=== PATIENT | male | born 1950 | race Caucasian/White ===

== ENCOUNTER → 2017-12-16 | Outpatient (CLI) | payer OTHER ==
[~2017-12-16] MED LIST: ACETAMINOPHEN325 M1 PO; ACETAMINOPHEN650 M5 PO; ADULT LOW DOSE81 MG PO; ANTACID500 MG PO; BENADRYL ALLERG25 MG PO; CLARITIN10 M2 PO; CLOBETASOL PROP50 M1 TOP; COLACE100 MG PO; COUMADIN 2.5MG2.5 M1 PO; COUMADIN 4 MG TA4 M1 PO; DEXILANT60 MG PO; DOVONEX TOP; FENOFIBRATE145 M1 PO; FOLIC ACID1 MG PO; GEMFIBROZIL 60600 MG PO; KEFLEX500 MG PO; METAMUCIL PAC1 UDPK1; METHOTREXA1 GM/40 ML PO; METHOTREXATE 22.5 MG PO; MIRALAX255 GM PO; MOM PO; NATURE MADE IRON PO; NORCO 5-325 TA1 EACH PO; NORCO 7.5-3251 EACH PO; OXYCODON-ACETA1 EAC1 PO; PREVACID15 MG PO; STOOL SOFTENER1 EAC2 PO; TRIAMTERENE-HC1 EAC3 PO; TRIAMTERENE/HCTZ PO; XARELTO15 MG PO
== END ==
LOC: M.ULTRA 15:59
DX: M79.662 Pain in left lower leg (principal); R60.9 Edema, unspecified; Z86.718 Personal history of other venous thrombosis and embolism